=== PATIENT | female | born 1985 | race Caucasian/White ===

== ENCOUNTER 2018-06-03 15:46 | Emergency (ER) | payer OTHER ==
[~2018-06-03] VITALS: Ht 162.6 cm; Wt 65.8 kg
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
[2018-06-03] MEDS ORDERED: NAPROSYN500 M1 PO (18:01)
[2018-06-03 18:07] VITALS: BP 112/72
== END 2018-06-03 18:10 ==
LOC: ERH 15:46
DX: M43.6 Torticollis (principal); F17.210 Nicotine dependence, cigarettes, uncomplicated; F10.10 Alcohol abuse, uncomplicated
CPT/HCPCS: 96374; 96375; J1200; J1885